=== PATIENT | male | born 1980 | race Caucasian/White ===

== ENCOUNTER → 2017-12-02 | Outpatient (CLI) | payer OTHER ==
[~2017-12-02] MED LIST: ISOVUE-370 76% 100ML VIAL (Q9967) As Ordered
== END ==
LOC: M RAD 08:23
DX: Z85.47 Personal history of malignant neoplasm of testis (principal)
CPT/HCPCS: Q9967

== ENCOUNTER → 2017-12-02 | Outpatient (REF) | payer OTHER ==
[2017-12-03 08:57] LABS: HCG SERUM TUMOR MARKER QUANT < 1 mIU/mL (0-3)
[2017-12-04 10:03] LABS: ALPHA FETOPROTEIN TUMOR QUANT 3.4 NG/ML (<8.1)
== END ==
LOC: M LAB REF 13:41
DX: Z85.47 Personal history of malignant neoplasm of testis (principal)
CPT/HCPCS: 84702

== ENCOUNTER 2018-06-11 11:20 | Emergency (ER) | payer OTHER ==
[~2018-06-11] VITALS: Ht 175.3 cm; Wt 81.8 kg
[~2018-06-11 11:20] MED LIST changes: +ACYC200C8 PO; -ISOVUE-370 76% 100ML VIAL (Q9967) As Ordered; +TEST200I14 IM
[2018-06-11 12:11] LABS: BASO % 0.4 % (0.0-1.0); EOS # 0.4 10^3/uL (0.0-0.50); EOS % 6.1 % (0.0-3.0); HEMATOCRIT 45.2 % (42.0-52.0); HEMOGLOBIN 15.3 g/dl (13.5-17.5); LYMPH # 2.6 10^3/uL (1.5-4.5); LYMPH % 35.5 % (24.0-44.0); MEAN CORPUSCULAR HEMOGLOBIN 32.6 pg (27.0-33.0); MEAN CORPUSCULAR HGB CONC 33.8 g/dl (32.0-36.5); MEAN CORPUSCULAR VOLUME 96.2 fl (80.0-96.0); MONO # 0.6 10^3/uL (0.0-0.8); MONO % 8.7 % (0.0-5.0); NEUTROPHILS # 3.5 10^3/uL (1.8-7.7); PLATELET COUNT, AUTOMATED 230 10^3/uL (150-450); WHITE BLOOD COUNT 7.2 10^3/uL (4.0-10.0)
[2018-06-11 12:15] LABS: INR 0.98; PARTIAL THROMBOPLASTIN TIME 27.7 SECONDS (25.4-37.6); PROTHROMBIN TIME 13.1 SECONDS (12.1-14.4)
[2018-06-11 12:20] LABS: ALBUMIN 4.1 GM/DL (3.2-5.2); ALT/SGPT 50 U/L (12-78); AMYLASE 43 U/L (25-115); BILIRUBIN,DIRECT 0.2 MG/DL (0.0-0.2); BILIRUBIN,TOTAL 0.5 MG/DL (0.2-1.0); BLOOD UREA NITROGEN 17 MG/DL (7-18); CALCIUM LEVEL 9.3 MG/DL (8.5-10.1); CARBON DIOXIDE LEVEL 29 MEQ/L (21-32); CHLORIDE LEVEL 104 MEQ/L (98-107); GLOMERULAR FILTRATION RATE > 60.0 (>60); GLUCOSE, FASTING 100 MG/DL (70-100); LIPASE 128 U/L (73-393); POTASSIUM SERUM 4.3 MEQ/L (3.5-5.1); SODIUM LEVEL 140 MEQ/L (136-145); TOTAL PROTEIN 7.2 GM/DL (6.4-8.2)
[2018-06-11] MEDS ORDERED: ISOVUE-370 76% 100ML VIAL (Q9967) As Ordered ONE (12:50)
--- NOTE | 2018-06-11 13:41 | REP ---
CT ABDOMEN AND PELVIS WITH IV CONTRAST: TECHNIQUE: Axial contrast enhanced images from the lung bases to the pubic symphysis using 100 mL Isovue 370 intravenous contrast material with multiplanar reformations with coronal and sagittal reconstruction images. Visualized lungs bases demonstrate no infiltrate. The liver, spleen, adrenals, pancreas and right kidney are unremarkable. There is no hydronephrosis bilaterally. There is an intrarenal calculus in the mid left kidney about 3 mm in diameter. There is no abdominal aortic aneurysm. There is no adenopathy. There is no free air or free fluid. There is no appendicitis. There is focal mild segmental thickening of a portion of the lower leg colon with adjacent streaky inflammatory change in the adjacent fat having a ring like appearance with central fat density. The findings most likely represent focal epiploic appendagitis. Alternatively this could represent mild focal colitis. Urinary bladder is mildly distended with no internal abnormality. No pelvic mass is seen. IMPRESSION: Mild focal segmental thickening of the lower left colon with adjacent surrounding streaky density in the surrounding fat. There is a somewhat ringlike density with central fat density along the anterior aspect of this portion of the colon. The findings are most consistent with focal epiploic appendagitis, less likely focal colitis of the lower left colon. There is no appendicitis. There is no free air or free fluid. Electronically Signed by Usama Clifton MD 06/11/2018 05:54 P
[2018-06-11 14:08] VITALS: BP 123/64
== END 2018-06-11 14:18 | disposition home or self-care (01) ==
LOC: M ED 11:20
DX: K65.9 Peritonitis, unspecified (principal); Z85.47 Personal history of malignant neoplasm of testis; Z79.890 Hormone replacement therapy
CPT/HCPCS: 74177; 80048; 80076; 81001; 82150; 83690; 85025; 85610; 85730; 99284; Q9967